=== PATIENT | male | born 1965 | race Two or more races ===

== ENCOUNTER 2017-04-28 09:40 | Emergency (ER) | payer OTHER ==
[2017-04-28] MEDS ORDERED: ceFAZolin 2 GM/DEXTROSE 100 ML IV ONE (09:47)
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
[2017-04-28] MEDS ORDERED: TDAP ADULT 0.5 ML INJ (BOOSTRIX) IM ONE (09:59)
[2017-04-28 10:40] VITALS: TEMP 97.7
[2017-04-28] MEDS ORDERED: HYDROmorphONE/DILAUDID 1 MG/ML INJ IVP ONE (11:10)
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
[2017-04-28 15:20] VITALS: BP 126/89; PULSE 68; RESP 21; O2SAT 93
== END 2017-04-28 15:14 | disposition home or self-care (01) ==
PROC: 0HQBXZZ Repair Right Upper Arm Skin, External Approach (ICD-10-PCS; principal; 2017-04-28)
DX: S41.111A Laceration without foreign body of right upper arm, initial encounter (principal); I10 Essential (primary) hypertension; E11.9 Type 2 diabetes mellitus without complications; Z79.84 Long term (current) use of oral hypoglycemic drugs; W31.89XA Contact with other specified machinery, initial encounter; Y92.69 Other specified industrial and construction area as the place of occurrence of the external cause
CPT/HCPCS: 82947-QW; 96365; J0690; J1170